=== PATIENT | female | born 1935 | race American Indian/Alaskan Native ===

== ENCOUNTER 2022-02-13 19:00 | Emergency (ER) | payer MEDICARE ==
[2022-02-13] MEDS ORDERED: MORPHINE 4 MG/1 ML INJ IV ONE (21:57)
[2022-02-13] MEDS ORDERED: ONDANSETRON 4 MG/2 ML INJ IV ONE (21:57)
[2022-02-13 22:43] LABS: Basophils # (Auto) 0.1 K/mm3 (0.0-0.1); Basophils % (Auto) 1.5 % (0.0-1.8); Eosinophils # (Auto) 0.2 K/mm3 (0.0-0.4); Eosinophils % (Auto) 4.3 % (0.0-4.3); Hematocrit 22.9 % (30.3-42.9); Hemoglobin 7.7 gm/dl (10.1-14.3); Lymphocytes # (Auto) 0.9 K/mm3 (1.2-5.4); Lymphocytes % (Auto) 17.7 % (13.4-35.0); Mean Corpuscular HGB Conc 34 % (30-34); Mean Corpuscular Volume 103 fl (79-97); Monocytes # (Auto) 0.6 K/mm3 (0.0-0.8); Monocytes % (Auto) 12.2 % (0.0-7.3); Platelet Count 148 K/mm3 (140-440); Red Blood Count 2.23 M/mm3 (3.65-5.03); Red Cell Distribution Width 16.8 % (13.2-15.2)
--- NOTE | 2022-02-13 22:53 | Emergency Department Report ---
ED Abdominal Pain HPI - General Chief Complaint: Abdominal Pain Stated Complaint: RECTAL BLEEDING Time Seen by Provider: 02/13/22 21:42 Source: patient, old records reviewed (no previous record) Mode of arrival: Ambulatory Limitations: No Limitations - History of Present Illness Initial Comments: 86-year-old obese female with a past medical history of end-stage renal disease on dialysis (Saturday, Saturday, Saturday), hypertension, iron deficiency, and L2 fracture presents to the hospital with complaints of lower back and abdominal pain. Pain is moderate to severe and worse with palpation and movement. No alleviating factors reported. Patient has had several episodes of nausea and vomiting and has not had a bowel movement in approximately 2 days. Last vomiting episode was several days ago after "swallowing a large pill". Patient appears to have some mild memory/recall issues and therefore her daughter at the bedside and assisted with the history of present illness patient was admitted to [facility] on February 01 upon discharge from [facility] where she was admitted for back pain. MRI during admission identified L2 fracture. Previous surgical history includes , hysterectomy, and possible cholecystectomy. 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 Patient's current medications include Ferrous citrate Gabapentin Metoprolol ER MiraLAX Coleen-Mayo Sertraline sevelamer Severity scale (0 -10): 9 - Related Data Previous Rx's Medication Instructions Recorded Last Taken Type Acetaminophen/Codeine [Tylenol 1 tab PO Q6H PRN #15 tab 02/14/22 Unknown Rx /Codeine # 3 tab] Docusate Sodium [Colace] 100 mg PO BID PRN #20 capsule 02/14/22 Unknown Rx Ondansetron [Zofran Odt] 4 mg PO Q8HR PRN #14 tab.rapdis 02/14/22 Unknown Rx Allergies Allergy/AdvReac Type Severity Reaction Status Date / Time No Known Allergies Allergy Unverified 02/13/22 21:17 ED Review of Systems ROS: Stated complaint: RECTAL BLEEDING Other details as noted in HPI Comment: All other systems reviewed and negative ED Past Medical Hx - Medications Home Medications: Home Medications Medication Instructions Recorded Confirmed Last Taken Type Acetaminophen/Codeine [Tylenol 1 tab PO Q6H PRN #15 tab 02/14/22 Unknown Rx /Codeine # 3 tab] Docusate Sodium [Colace] 100 mg PO BID PRN #20 capsule 02/14/22 Unknown Rx Ondansetron [Zofran Odt] 4 mg PO Q8HR PRN #14 tab.rapdis 02/14/22 Unknown Rx ED Physical Exam - General Limitations: No Limitations - Other Other exam information: General: No acute distress Head: Atraumatic Eyes: normal appearance ENT: Moist mucous membranes Neck: Normal appearance, no midline tenderness Chest: Clear to auscultation bilaterally CV: Regular rate and rhythm Abdomen: Soft, normal bowel sounds, mild generalized abdominal pain, no rebound and guarding Rectal: Brown stool without fecal impaction. Guaiac negative Back: Normal inspection Extremity: Normal inspection, full range of motion Neuro: Alert O x 3, no facial asymmetry, speech clear, no gross motor sensory deficit Psych: Appropriate behavior Skin: No rash ED Course Vital Signs 02/13/22 21:07 Temperature 98.9 F Pulse Rate 72 Respiratory 14 Rate Blood Pressure 136/56 [Left] O2 Sat by Pulse 100 Oximetry ED Medical Decision Making - Lab Data Result diagrams: 02/13/22 22:22 02/13/22 22:22 Lab Results 02/13/22 02/13/22 Range/Units 22:22 22:22 WBC 5.0 (4.5-11.0) K/mm3 RBC 2.23 L (3.65-5.03) M/mm3 Hgb 7.7 L (10.1-14.3) gm/dl Hct 22.9 L (30.3-42.9) % MCV 103 H (79-97) fl MCH 35 H (28-32) pg MCHC 34 (30-34) % RDW 16.8 H (13.2-15.2) % Plt Count 148 (140-440) K/mm3 Lymph % (Auto) 17.7 (13.4-35.0) % Starr % (Auto) 12.2 H (0.0-7.3) % Eos % (Auto) 4.3 (0.0-4.3) % Baso % (Auto) 1.5 (0.0-1.8) % Lymph # (Auto) 0.9 L (1.2-5.4) K/mm3 Starr # (Auto) 0.6 (0.0-0.8) K/mm3 Eos # (Auto) 0.2 (0.0-0.4) K/mm3 Baso # (Auto) 0.1 (0.0-0.1) K/mm3 Seg Neutrophils % 64.3 (40.0-70.0) % Seg Neutrophils # 3.2 (1.8-7.7) K/mm3 Sodium 132 L (137-145) mmol/L Potassium 4.0 (3.6-5.0) mmol/L Chloride 91.6 L (98-107) mmol/L Carbon Dioxide 26 (22-30) mmol/L Anion Gap 18 mmol/L BUN 37 H (7-17) mg/dL Creatinine 9.1 H (0.6-1.2) mg/dL Estimated GFR 5 ml/min BUN/Creatinine Ratio 4 % Glucose 98 (65-100) mg/dL Calcium 8.9 (8.4-10.2) mg/dL Total Bilirubin 0.30 (0.1-1.2) mg/dL AST 17 (5-40) units/L ALT 7 (7-56) units/L Alkaline Phosphatase 126 (35-129) units/L Total Protein 6.1 L (6.3-8.2) g/dL Albumin 4.0 (3.9-5) g/dL Albumin/Globulin Ratio 1.9 % Lipase 160 H (13-60) units/L - Radiology Data Radiology results: report reviewed CT ABDOMEN AND PELVIS WITHOUT CONTRAST INDICATION / CLINICAL INFORMATION: Nausea with vomiting, constipation, abdominal and back pain, history of L2 fracture. TECHNIQUE: Axial CT images were obtained through the abdomen and pelvis without IV contrast. All CT scans at this location are performed using CT dose reduction for ALARA by means of automated exposure control. COMPARISON: None available. FINDINGS: LOWER CHEST: There is mild cardiomegaly and severe coronary artery calcific ation without other significant abnormalities. LIVER: No significant abnormality. GALLBLADDER: Surgically absent. BILE DUCTS: No significant abnormality. PANCREAS: No significant abnormality. SPLEEN: No significant abnormality. ADRENALS: No significant abnormality. RIGHT KIDNEY/URETER: No acute findings. Mild right renal parenchymal thinning. LEFT KIDNEY/URETER: No acute findings. Mild left renal parenchymal thinning with a probable upper pole cyst measuring up to 1.3 cm. STOMACH/SMALL BOWEL: No significant abnormality. COLON: No acute findings. There is scattered noninflamed diverticulosis. APPENDIX: Not seen. PERITONEUM: No free fluid. No free air. No fluid collection. LYMPH NODES: No significant adenopathy. VASCULATURE: There is moderate generalized atherosclerosis without other significant abnormalities. URINARY BLADDER: Collapsed without a distinct acute abnormality. REPRODUCTIVE ORGANS: No significant abnormality. ADDITIONAL FINDINGS: None. BONES: A compression fracture involving the inferior endplate of L2 results and moderate loss of vertebral body height. The posterior wall of the vertebral body appears intact. There is no involvement of the posterior elements at that level. No other acute findings. 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 IMPRESSION: 1. Acute/subacute L2 compression fracture without other acute findings in the abdomen or pelvis to explain the patient's complaints. 2. Additional findings as above. - Medical Decision Making Patient feeling better after 1 dose of morphine and Zofran. CT does not show any acute abnormality and worsening L2 fracture is noted. No mention of significant constipation, bowel obstruction, or infection. Urine not obtained because patient not produce urine. Labs significant for anemia with history of iron deficiency and patient is currently on iron tablets. Guaiac is negative without signs of active bleeding. patient does not have pain medication listed on her MAR from rehab. Tylenol with codeine and Colace will be prescribed. Patient be instructed to continue MiraLAX as needed Critical care attestation.: If time is entered above; I have spent that time in minutes in the direct care of this critically ill patient, excluding procedure time. ED Disposition Clinical Impression: L2 vertebral fracture, Nonspecific abdominal pain, Acute exacerbation of chronic low back pain, Anemia, History of iron deficiency, ESRD (end stage renal disease) on dialysis Disposition: 01 HOME / SELF CARE / HOMELESS Is pt being admited?: No Does the pt Need Aspirin: No Condition: Stable Instructions: Lumbar Spine Fracture, Abdominal Pain, Adult, [id number], Chronic Back Pain, [id number], Abdominal Pain (ED) Additional Instructions: Your CAT scan today does not show significant constipation. Only significant finding is your known L2 fracture. Your lab work shows anemia. Continue your medications including iron tablets as prescribed. Please note Tylenol with codeine and iron tablets may cause constipation. Continue MiraLAX as needed for constipation. Colace has also been prescribed to prevent constipation. Follow-up with your doctor or doctor/clinic provided. Return if symptoms worsen as indicated by your discharge instructions. Prescriptions: Docusate Sodium [Colace] 100 mg PO BID PRN #20 capsule PRN Reason: Constipation Acetaminophen/Codeine [Tylenol /Codeine # 3 tab] 1 tab PO Q6H PRN #15 tab PRN Reason: Pain , Severe (7-10) Ondansetron [Zofran Odt] 4 mg PO Q8HR PRN #14 tab.rapdis PRN Reason: Agitation / Pain Referrals: RADU DICKEY MD [Primary Care Provider] - 3-5 Days Time of Disposition: 00:39
--- NOTE | 2022-02-13 23:21 | Cat Scan Report ---
CT ABDOMEN AND PELVIS WITHOUT CONTRAST INDICATION / CLINICAL INFORMATION: Nausea with vomiting, constipation, abdominal and back pain, history of L2 fracture. TECHNIQUE: Axial CT images were obtained through the abdomen and pelvis without IV contrast. All CT scans at [facility] are performed using CT dose reduction for ALARA by means of automated exposure control. COMPARISON: None available. FINDINGS: LOWER CHEST: There is mild cardiomegaly and severe coronary artery calcification without other signif icant abnormalities. LIVER: No significant abnormality. GALLBLADDER: Surgically absent. BILE DUCTS: No significant abnormality. PANCREAS: No significant abnormality. SPLEEN: No significant abnormality. ADRENALS: No significant abnormality. RIGHT KIDNEY/URETER: No acute findings. Mild right renal parenchymal thinning. LEFT KIDNEY/URETER: No acute findings. Mild left renal parenchymal thinning with a probable upper gavin e cyst measuring up to 1.3 cm. STOMACH/SMALL BOWEL: No significant abnormality. COLON: No acute findings. There is scattered noninflamed diverticulosis. APPENDIX: Not seen. PERITONEUM: No free fluid. No free air. No fluid collection. LYMPH NODES: No significant adenopathy. VASCULATURE: There is moderate generalized atherosclerosis without other significant abnormalities. URINARY BLADDER: Collapsed without a distinct acute abnormality. REPRODUCTIVE ORGANS: No significant abnormality. ADDITIONAL FINDINGS: None. BONES: A compression fracture involving the inferior endplate of L2 results and moderate loss of vert ebral body height. The posterior wall of the vertebral body appears intact. There is no involvement o f the posterior elements at that level. No other acute findings. There is AVN of the hips with genera lized demineralization of the bones. IMPRESSION: 1. Acute/subacute L2 compression fracture without other acute findings in the abdomen or pelvis to ex plain the patient's complaints. 2. Additional findings as above. Signer Name: Douglas Christianson MD Signed: 02/13/2022 11:17 PM Workstation Name: [id number]
[2022-02-13 23:22] LABS: Calcium 8.9 mg/dL (8.4-10.2)
[2022-02-14 05:27] VITALS: BP 132/86
== END 2022-02-14 05:28 | disposition home or self-care (01) ==
LOC: ED 19:00
DX: S32.029A Unspecified fracture of second lumbar vertebra, initial encounter for closed fracture (principal); G89.29 Other chronic pain; M54.50 Low back pain, unspecified; N18.9 Chronic kidney disease, unspecified; D64.9 Anemia, unspecified; Z79.899 Other long term (current) drug therapy; Z99.2 Dependence on renal dialysis; X58.XXXA Exposure to other specified factors, initial encounter; Y93.89 Activity, other specified; Y92.89 Other specified places as the place of occurrence of the external cause; Y99.8 Other external cause status
CPT/HCPCS: 36415; 74176; 80053; 82271; 83690; 85025; 96374; 96375; 99284; J2270; J2405